=== PATIENT | female | born 1990 | race American Indian/Alaskan Native ===

== ENCOUNTER 2017-11-22 16:45 | Emergency (ER) | payer OTHER ==
[2017-11-22 16:45] VITALS: BMI 33.4
[2017-11-22 17:15] VITALS: RESP 18
--- NOTE | 2017-11-22 17:18 | ED PDOC ---
Arrival/HPI - General Chief Complaint: Chest Pain Time Seen by Provider: 11/22/17 16:46 Historian: Patient - History of Present Illness Narrative History of Present Illness (Text): you were treated in the ED today for no past medical conditions with mid- sternal chest pain with mild associated nausea which too as resolved but otherwise without any vomiting/headache/dizziness/difficulty breathing/abdomen pain/numbness/tingling/loss of limb function/pain with urination/no travel/ blood clots/cancer/hormonal use. 11/22/17 17:15 Time/Duration: Other (2 days) Symptom Onset: Gradual Symptom Course: Resolved, Intermittent Quality: Other (no pain) Activities at Onset: Rest Context: Sitting Past Medical History - Provider Review Nursing Documentation Reviewed: Yes - Travel History Have you recently traveled outside [place] w/in the past 3 mons?: No - Infectious Disease Hx of Infectious Diseases: None - Tetanus Immunization Tetanus Immunization: Unknown - Neurological Hx Migraine: Yes - Psychiatric Hx Psychophysiologic Disorder: No Hx Substance Use: No - Anesthesia Hx Anesthesia: No Family/Social History - Physician Review Nursing Documentation Reviewed: Yes Family/Social History: No Known Family HX Smoking Status: Never Smoked Hx Alcohol Use: Yes Frequency of alcohol use: Socially Hx Substance Use: No Allergies/Home Meds Allergies/Adverse Reactions: Allergies No Known Allergies Allergy (Verified 12/11/15 11:08) Home Medications: Home Meds Medication Instructions Recorded Confirmed No Known Home Med 12/11/15 11/22/17 Review of Systems - Review of Systems Constitutional: Normal Eyes: Normal ENT: Normal Respiratory: Normal Cardiovascular: Chest Pain Gastrointestinal: Nausea Genitourinary Female: Normal Musculoskeletal: Normal Skin: Normal Neurological: Normal Endocrine: Normal Hemo/Lymphatic: Normal Psychiatric: Normal Physical Exam Vital Signs Reviewed: Yes Vital Signs Temp Pulse Resp BP Pulse Ox 11/22/17 17:15 97.8 F 74 18 126/78 97 Appearance: Positive for: Well-Appearing, Non-Toxic, Comfortable Pain Distress: None Mental Status: Positive for: Alert and Oriented X 3 - Systems Exam Head: Present: Atraumatic, Normocephalic Pupils: Present: PERRL Extroacular Muscles: Present: EOMI Conjunctiva: Present: Normal Ears: Present: Normal Mouth: Present: Moist Mucous Membranes Pharnyx: Present: Normal Nose (External): Present: Atraumatic Nose (Internal): Present: Normal Inspection Neck: Present: Normal Range of Motion Respiratory/Chest: Present: Clear to Auscultation, Good Air Exchange Cardiovascular: Present: Regular Rate and Rhythm Abdomen: No: Tenderness, Distention, Normal Bowel Sounds, Peritoneal Signs, Rebound, Guarding, McBurney's Point Tender, Rovsing's Sign Present, Hernias, Feeding Tubes, Ostomy Tubes, Mass/Organomegaly, Scars, Other Back: Present: Normal Inspection Upper Extremity: Present: Normal Inspection Lower Extremity: Present: Normal Inspection Neurological: Present: GCS=15, CN II-XII Intact, Speech Normal, Motor Func Grossly Intact Skin: Present: Warm, Normal Color Psychiatric: Present: Alert, Oriented x 3, Normal Insight, Normal Concentration Medical Decision Making ED Course and Treatment: you were treated in the ED today for no past medical conditions with mid- sternal chest pain with mild associated nausea which too as resolved but otherwise without any vomiting/headache/dizziness/difficulty breathing/abdomen pain/numbness/tingling/loss of limb function/pain with urination/no travel/ blood clots/cancer/hormonal use. Uses just marijuana but denies any other drugs. You were otherwise breathing easily, smiling and laughing, good strength/ sensation, walking easily, clear lungs, no abdomen tenderness, no fever temp 97.8, stable heart rate 74, stable breathing rate 18, excellent oxygen level 97% room air, elevated blood pressure 126/78 which we recommend repeat in 2-3 days primary care office to determine further treatment, you have blood tests no infection count 10, stable blood level hemoglobin 12/platelets 337, stable chemistry, heart blood test negative less than 0.01, urine test negative, radiology chest xray no acute findings, ECG normal sinus rhythm, aspirin, protonix, observation done in the ED with improvement, counselled to monitor symptoms and thus discharged home. 1. Recommend pepcid as directed for stomach acid control. 3. Recommend follow-up primary care 2-3 days to review symptoms, referral to cardiology and gastroenterology to review your symptoms. 4. If any worsening pain, fever, chills, nausea, vomiting, difficulty breathing , numbness, loss of limb function, pain with urination or any medical condition then return to the ED. 11/22/17 19:00 11/22/17 19:53 Reassessment Condition: Re-examined, Improved - Lab Interpretations Lab Results: 11/22/17 17:45 11/22/17 17:45 Lab Results 11/22/17 18:45: Urine HCG, Qual Negative 11/22/17 17:45: Sodium 141, Potassium 4.1, Chloride 100, Carbon Dioxide 25, Anion Gap 20, BUN 9, Creatinine 0.7, Est GFR ( Amer) > 60, Est GFR (Non- Af Amer) > 60, Random Glucose 88, Calcium 10.1, Magnesium 2.1, Total Bilirubin 0.3, AST 33, ALT 30, Alkaline Phosphatase 99, Lactate Dehydrogenase 542, Total Creatine Kinase 94, Troponin I < 0.01, Total Protein 9.3 H, Albumin 5.1 H, Globulin 4.2, Albumin/Globulin Ratio 1.2 11/22/17 17:45: PT 10.7, INR 0.94, APTT 32.1 11/22/17 17:45: WBC 10.3 D, RBC 4.54, Hgb 12.8, Hct 39.0, MCV 85.9, MCH 28.2, MCHC 32.8, RDW 13.2, Plt Count 337, MPV 10.1, Gran % 57.0, Lymph % (Auto) 36.7 H , Otoe % (Auto) 4.5, Eos % (Auto) 1.4 L, Baso % (Auto) 0.4, Gran # 5.89, Lymph # (Auto) 3.8 H, Otoe # (Auto) 0.5, Eos # (Auto) 0.1, Baso # (Auto) 0.04 I have reviewed the lab results: Yes - RAD Interpretation Radiology Orders: 11/22/17 17:17 CHEST PORTABLE [RAD] Stat - EKG Interpretation Interpreted by ED Physician: Yes (NSR, flipped avr, v1, ) Type: 12 lead EKG - Medication Orders Current Medication Orders: Discontinued Medications Aspirin (Aspirin) 325 mg PO STAT STA Stop: 11/22/17 17:18 Last Admin: 11/22/17 17:59 Dose: 325 mg Pantoprazole Sodium (Protonix Ec Tab) 40 mg PO STAT STA Stop: 11/22/17 17:21 Last Admin: 11/22/17 17:59 Dose: 40 mg Disposition/Present on Arrival - Present on Arrival Any Indicators Present on Arrival: No History of DVT/PE: No History of Uncontrolled Diabetes: No Urinary Catheter: No History of Decub. Ulcer: No History Surgical Site Infection Following: None - Disposition Have Diagnosis and Disposition been Completed?: Yes Diagnosis: Chest pain Disposition: HOME/ ROUTINE Disposition Time: 19:52 Patient Plan: Discharge Condition: IMPROVED Discharge Instructions (ExitCare): Chest Pain (ED), Chest Pain (DC) Additional Instructions: you were treated in the ED today for no past medical conditions with mid- sternal chest pain with mild associated nausea which too as resolved but otherwise without any vomiting/headache/dizziness/difficulty breathing/abdomen pain/numbness/tingling/loss of limb function/pain with urination/no travel/ blood clots/cancer/hormonal use. Uses just marijuana but denies any other drugs. You were otherwise breathing easily, smiling and laughing, good strength/ sensation, walking easily, clear lungs, no abdomen tenderness, no fever temp 97.8, stable heart rate 74, stable breathing rate 18, excellent oxygen level 97% room air, elevated blood pressure 126/78 which we recommend repeat in 2-3 days primary care office to determine further treatment, you have blood tests no infection count 10, stable blood level hemoglobin 12/platelets 337, stable chemistry, heart blood test negative less than 0.01, urine test negative, radiology chest xray no acute findings, ECG normal sinus rhythm, aspirin, protonix, observation done in the ED with improvement, counselled to monitor symptoms and thus discharged home. 1. Recommend pepcid as directed for stomach acid control. 3. Recommend follow-up primary care 2-3 days to review symptoms, referral to cardiology and gastroenterology to review your symptoms. 4. If any worsening pain, fever, chills, nausea, vomiting, difficulty breathing , numbness, loss of limb function, pain with urination or any medical condition then return to the ED. Referrals: PCP,NO [Primary Care Provider] - Follow up with primary Forms: [employer] ([place]e)
[2017-11-22] MEDS ORDERED: Pantoprazole 40 mg EC Tab PO STA (17:20)
[2017-11-22 18:04] LABS: BASO # 0.04 K/mm3 (0.0-2.0); BASO % 0.4 % (0.0-3.0); EOS # 0.1 (0.0-0.7); EOS % 1.4 % (1.5-5.0); GRAN # 5.89 (1.4-6.5); HEMOGLOBIN 12.8 g/dL (12.0-16.0); LYMPH # 3.8 (1.2-3.4); LYMPH % 36.7 % (22.0-35.0); MEAN CELL VOLUME 85.9 fl (80.0-105.0); MEAN CORPUSCULAR HEMOGLOBIN 28.2 pg (25.0-35.0); MEAN CORPUSCULAR HGB CONC 32.8 g/dl (31.0-37.0); MEAN PLATELET VOLUME 10.1 fl (7.0-11.0); MONO # 0.5 (0.1-0.6); MONO % 4.5 % (1.0-6.0); RBC 4.54 10^6/uL (3.5-6.1); RED CELL DISTRIBUTION WIDTH 13.2 % (11.5-14.5); WHITE BLOOD COUNT 10.3 10^3/ul (4.5-11.0)
[2017-11-22 18:14] LABS: ALB/GLOB RATIO 1.2 (1.1-1.8); ALBUMIN 5.1 g/dL (3.0-4.8); ALT/SGPT 30 U/L (7-56); AST/SGOT 33 U/L (14-36); BLOOD UREA NITROGEN 9 mg/dL (7-21); CALCIUM 10.1 mg/dL (8.4-10.5); GFR AFRICAN-AMERICAN > 60; GFR NON-AFRICAN AMERICAN > 60
[2017-11-22 18:21] LABS: INR 0.94 (0.93-1.08); PARTIAL THROMBOPLASTIN TIME 32.1 Seconds (25.1-36.5); PROTHROMBIN TIME 10.7 SECONDS (9.4-12.5)
[2017-11-22 18:24] LABS: TROPONIN I < 0.01 ng/mL
[2017-11-22 20:28] VITALS: BP 120/70; PULSE 83; O2SAT 99
[2017-11-22 20:40] VITALS: TEMP 98.1
--- NOTE | 2017-11-23 08:19 | RAD ---
HISTORY: Chest pain COMPARISON: No prior. FINDINGS: LUNGS: No active pulmonary disease. PLEURA: No significant pleural effusion identified, no pneumothorax apparent. CARDIOVASCULAR: Normal. OSSEOUS STRUCTURES: No significant abnormalities. VISUALIZED UPPER ABDOMEN: Normal. OTHER FINDINGS: None. IMPRESSION: No active disease.
--- NOTE | 2017-11-23 08:54 | CARD ---
APPROVED REPORT EKG Measurement Heart [id number] <Conclusion> Normal sinus rhythm.
== END 2017-11-22 20:20 | disposition home or self-care (01) ==
LOC: ED 16:45
DX: R07.9 Chest pain, unspecified (principal)

== ENCOUNTER 2018-05-10 19:59 | Emergency (ER) | payer OTHER ==
[2018-05-10 19:59] VITALS: BMI 33.4
--- NOTE | 2018-05-10 21:41 | ED PDOC ---
Arrival/HPI - General Time Seen by Provider: 05/10/18 21:04 Historian: Patient - History of Present Illness Narrative History of Present Illness (Text): 05/10/18 21:39 27 y/o female, pmh including gerd, nkda, c/o lower abdominal pain with nausea/vomiting/diarrhea x 4-5 days. Aching pain, on and off, associated with nausea/vomiting, couple episodes of watery diarrhea, no fever or chills, no night sweat, no dizziness, no change in vision, no palpitation no other medical or psychological complaints. Past Medical History - Provider Review Nursing Documentation Reviewed: Yes - Infectious Disease Hx of Infectious Diseases: None - Tetanus Immunization Tetanus Immunization: Unknown - Neurological Hx Migraine: Yes - Psychiatric Hx Psychophysiologic Disorder: No Hx Substance Use: No - Anesthesia Hx Anesthesia: No Family/Social History - Physician Review Nursing Documentation Reviewed: Yes Family/Social History: Unknown Family HX Smoking Status: Never Smoked Hx Alcohol Use: Yes Hx Substance Use: No Allergies/Home Meds Allergies/Adverse Reactions: Allergies No Known Allergies Allergy (Verified 05/10/18 21:42) Review of Systems - Review of Systems Constitutional: absent: Fatigue, Fevers Eyes: absent: Vision Changes ENT: absent: Hearing Changes Respiratory: absent: SOB, Cough Cardiovascular: absent: Chest Pain Gastrointestinal: Abdominal Pain, Diarrhea, Nausea, Vomiting Musculoskeletal: absent: Arthralgias, Back Pain Skin: absent: Rash, Pruritis Neurological: absent: Headache, Dizziness Psychiatric: absent: Anxiety, Depression, Suicidal Ideation Physical Exam - Systems Exam Head: Present: Atraumatic, Normocephalic Pupils: Present: PERRL Extroacular Muscles: Present: EOMI Conjunctiva: Present: Normal Mouth: Present: Moist Mucous Membranes Neck: Present: Normal Range of Motion Respiratory/Chest: Present: Clear to Auscultation, Good Air Exchange. No: Respiratory Distress, Accessory Muscle Use Cardiovascular: Present: Regular Rate and Rhythm, Normal S1, S2. No: Murmurs Abdomen: Present: Tenderness (periumbilical region). No: Distention, Peritoneal Signs, Rebound, Guarding Back: Present: Normal Inspection Upper Extremity: Present: Normal Inspection. No: Cyanosis, Edema Lower Extremity: Present: Normal Inspection. No: Edema Neurological: Present: GCS=15, CN II-XII Intact, Speech Normal, Motor Func Grossly Intact, Gait Normal, Memory Normal Skin: Present: Warm, Dry, Normal Color. No: Rashes Psychiatric: Present: Alert, Oriented x 3, Normal Insight, Normal Concentration Medical Decision Making ED Course and Treatment: 05/10/18 21:40 -Labs/ua -CT abdomen and pelvis -IVF/pepcid/reglan -Observe and reassess 05/11/18 00:16 -urine hcg is negative -CT abdomen and pelvis show Enteritis. Infectious and inflammatory etiologies are considered. There is a small complex low attenuation lesion in the left adnexa measuring 2.0 x 2.2 cm. -Labs show no acute findings -UA show +UTI -All labs and radiology results discussed with the patient, she feels much better. -Discharge home with macrobid, motrin, pepcid, zofran, BRAT diet, nondairy diet, follow up with your own pmd and obgyn/GI within 2 days, return to the ER for any new or worsening signs or symptoms. - RAD Interpretation Radiology Orders: FINDINGS: LUNG BASES: The lung bases appear clear. No pleural effusions are seen. LIVER: Unremarkable. GALLBLADDER AND BILE DUCTS: The gallbladder appears within normal limits. No radioopaque gallstones are seen. No biliary ductal dilatation is evident. PANCREAS: Unremarkable. SPLEEN: Unremarkable. ADRENAL GLANDS: Unremarkable. KIDNEYS, URETERS, AND BLADDER: There is a small simple cyst in the right kidney. STOMACH AND BOWEL: Thick walled fluid filled duodenum and loops of jejunum as well as ileum compatible with enteritis. Infectious and inflammatory etiologies are considered. APPENDIX: No evidence of acute appendicitis on CT examination. PERITONEUM: No free fluid. No free air. LYMPH NODES: No lymphadenopathy is evident. REPRODUCTIVE: MISCELLANEOUS: There is a small complex low attenuation lesion in the left adnexa measuring 2.0 x 2.2 cm. Otherwise negative. VASCULATURE: No evidence of abdominal aortic aneurysm. BONES: No aggressive appearing osseous lesion. No acute osseous pathology evident. IMPRESSION: 1. Enteritis. Infectious and inflammatory etiologies are considered. 2. There is a small complex low attenuation lesion in the left adnexa measuring 2.0 x 2.2 cm. Electronically signed on May 10, 2018 11:50:32 PM EDT by: Daniel Jones M.D., CLIF Certified By [employer] Fellowship Trained MRI and CT Specialist Supervisor Maintenance And Custodians: Radiologist - PA / [employer]CE[employer] LIFEGUARD SPECIALIST / Resident Statement / has reviewed & agrees with the documentation as recorded. Disposition/Present on Arrival - Present on Arrival Any Indicators Present on Arrival: No History of DVT/PE: No History of Uncontrolled Diabetes: No Urinary Catheter: No History of Decub. Ulcer: No History Surgical Site Infection Following: None - Disposition Have Diagnosis and Disposition been Completed?: Yes Diagnosis: UTI (urinary tract infection), Ovarian cyst, Gastroenteritis Disposition: HOME/ ROUTINE Disposition Time: 00:18 Patient Plan: Discharge Patient Problems: Current Active Problems Problem Status Onset UTI (urinary tract infection) Acute Abdominal pain Acute Condition: IMPROVED Additional Instructions: -Discharge home with macrobid, motrin, pepcid, zofran, BRAT diet, nondairy diet, follow up with your own pmd and obgyn/GI within 2 days, return to the ER for any new or worsening signs or symptoms. Prescriptions: Famotidine [Pepcid] 20 mg PO BID #14 tab Ibuprofen [Motrin] 600 mg PO QID PRN #30 tab PRN Reason: Other Nitrofurantoin Macrocrystals [Macrobid] 100 mg PO BID #14 cap Ondansetron [Zofran] 4 mg PO Q8H PRN #12 tab PRN Reason: Other Referrals: Sandro Oreilly DO [Staff Provider] - Follow up with primary Nghia Tejeda MD [Staff Provider] - Follow up with primary [facility] [place] [Outside] - Follow up with primary Forms: WORK NOTE
[2018-05-10 21:42] VITALS: RESP 20; TEMP 98.1; O2SAT 97
[2018-05-10] MEDS ORDERED: Sodium Chloride 0.9% 1,000 ML IV STA (21:43)
[2018-05-10 22:07] LABS: BASO # 0.06 K/mm3 (0.0-2.0); BASO % 0.7 % (0.0-3.0); EOS # 0.2 (0.0-0.7); EOS % 1.9 % (1.5-5.0); GRAN # 5.13 (1.4-6.5); GRAN % 56.8 % (50.0-68.0); LYMPH # 3.2 (1.2-3.4); LYMPH % 35.3 % (22.0-35.0); MEAN CELL VOLUME 85.6 fl (80.0-105.0); MEAN CORPUSCULAR HEMOGLOBIN 28.8 pg (25.0-35.0); MEAN CORPUSCULAR HGB CONC 33.6 g/dl (31.0-37.0); MEAN PLATELET VOLUME 9.9 fl (7.0-11.0); MONO # 0.5 (0.1-0.6); MONO % 5.3 % (1.0-6.0); RBC 4.52 10^6/uL (3.5-6.1); RED CELL DISTRIBUTION WIDTH 12.8 % (11.5-14.5)
[2018-05-10 22:08] LABS: PH,URINE 6.5 (4.7-8.0); URINE BILIRUBIN NEGATIVE (NEGATIVE); URINE BLOOD TRACE-INTACT (NEGATIVE); URINE GLUCOSE (UA) NEGATIVE (NEGATIVE); URINE LEUKOCYTE ESTERASE TRACE Leu/uL (NEGATIVE); URINE PROTEIN NEGATIVE mg/dL (<30 mg/dL); URINE UROBILINOGEN 0.2 E.U./dL (<1 E.U./dL)
[2018-05-10 22:10] LABS: URINE APPEARANCE CLEAR (CLEAR); URINE COLOR YELLOW (YELLOW)
[2018-05-10 22:15] LABS: ALB/GLOB RATIO 1.1 (1.1-1.8); ALBUMIN 4.5 g/dL (3.0-4.8); ALT/SGPT 22 U/L (7-56); AST/SGOT 24 U/L (14-36); BLOOD UREA NITROGEN 12 mg/dL (7-21); CALCIUM 9.2 mg/dL (8.4-10.5); GFR NON-AFRICAN AMERICAN > 60; LIPASE 60 U/L (23-300)
[2018-05-10 22:31] LABS: URINE RBC 0 - 2 /hpf (0-2)
[2018-05-10 22:33] LABS: URINE AMORPHOUS SEDIMENT FEW; URINE BACTERIA OCC (NEG)
[2018-05-11 00:30] VITALS: BP 124/63; PULSE 79
--- NOTE | 2018-05-11 08:42 | CT ---
Date of service: 05/10/2018 PROCEDURE: CT Abdomen and Pelvis with contrast HISTORY: lower abdominal pain/n/v/diarrhea COMPARISON: None available. TECHNIQUE: Contrast dose: 150 mL Omnipaque 350 Radiation dose: Total exam DLP = 1214.78 mGy-cm. This CT exam was performed using one or more of the following dose reduction techniques: Automated exposure control, adjustment of the mA and/or kV according to patient size, and/or use of iterative reconstruction technique. FINDINGS: LOWER THORAX: No visible consolidation, pleural effusion, or pneumothorax. LIVER: Unremarkable. GALLBLADDER AND BILE DUCTS: Unremarkable. PANCREAS: Unremarkable. SPLEEN: Unremarkable. ADRENALS: Unremarkable. KIDNEYS AND URETERS: The kidneys enhance symmetrically. No hydronephrosis or obstructing calculus identified. 12 mm right renal cyst. VASCULATURE: No aortic aneurysm. BOWEL: Stomach is nondistended. Lack of oral contrast limits evaluation for bowel pathology. Bowel loops appear within normal limits of caliber without evidence of obstruction. Small bowel wall thickening (duodenum, jejunum, ileum) consistent with enteritis. APPENDIX: The appendix appears within normal limits of caliber. No secondary signs of acute appendicitis. PERITONEUM: No significant free fluid. No definite free air. LYMPH NODES: Prominent sub cm mesenteric lymph nodes, nonspecific. BLADDER: Unremarkable. REPRODUCTIVE: The uterus is present. 2.2 cm probable left complex cyst. BONES: No acute osseous abnormality is detected. OTHER FINDINGS: None. IMPRESSION: Suspect 2.2 cm complex left ovarian cyst. Recommend further evaluation with pelvic ultrasound. Mild nonspecific wall thickening involving several bowel loops may be seen in the setting of enteritis. Correlate clinically. Preliminary impression was provided by [employer].
== END 2018-05-11 00:32 | disposition home or self-care (01) ==
LOC: ED 19:59
DX: K52.9 Noninfective gastroenteritis and colitis, unspecified (principal); N39.0 Urinary tract infection, site not specified; N83.209 Unspecified ovarian cyst, unspecified side
CPT/HCPCS: 74177; 80053; 81001; 83690; 83735; 85025; 87086; 96374; 96375; 99283; J2765; J7030; Q9967

== ENCOUNTER 2018-07-30 22:34 | Emergency (ER) | payer OTHER ==
[2018-07-30 22:34] VITALS: BMI 33.4
[2018-07-30] MEDS ORDERED: Penicillin G Benzathine 1.2 Mill Unit/2 ml Syr IM STA (23:56)
--- NOTE | 2018-07-31 00:17 | ED PDOC ---
Arrival/HPI <Brett Cuadra - Last Filed: 07/31/18 01:01> - General Historian: Patient - History of Present Illness Narrative History of Present Illness (Text): 07/31/18 00:20 27-year-old female complaining of sore throat for the past few days with a dry cough. Reports no rash, headache, nausea, vomiting, diarrhea difficulty breathing, chest pain, abdominal pain. Has no additional complaints. <Berna Betancourt PA-C - Last Filed: 07/31/18 01:39> - General Chief Complaint: ENT Problem Time Seen by Provider: 07/30/18 22:49 Past Medical History - Infectious Disease Hx of Infectious Diseases: None - Tetanus Immunization Tetanus Immunization: Unknown - Neurological Hx Migraine: Yes - Psychiatric Hx Psychophysiologic Disorder: No Hx Substance Use: No - Anesthesia Hx Anesthesia: No <Berna Betancourt PA-C - Last Filed: 07/31/18 01:39> Family/Social History Family/Social History: No Known Family HX Smoking Status: Never Smoked Hx Alcohol Use: Yes Hx Substance Use: No <Berna Betancourt PA-C - Last Filed: 07/31/18 01:39> Allergies/Home Meds <Brett Cuadra - Last Filed: 07/31/18 01:01> <Berna Betancourt PA-C - Last Filed: 07/31/18 01:39> Allergies/Adverse Reactions: Allergies No Known Allergies Allergy (Verified 05/10/18 21:42) Review of Systems - Review of Systems Constitutional: Fevers. absent: Fatigue ENT: Sore Throat. absent: Rhinorrhea, Sinus Congestion Respiratory: Cough. absent: SOB Cardiovascular: absent: Chest Pain, Palpitations Gastrointestinal: absent: Abdominal Pain, Nausea, Vomiting Skin: absent: Rash, Pruritis, Skin Lesions Neurological: absent: Headache, Dizziness <Berna Betancourt PA-C - Last Filed: 07/31/18 01:39> Physical Exam Vital Signs Temp Pulse Resp BP Pulse Ox 07/30/18 23:50 100.8 F H 113 H 18 134/87 98 <Brett Cuadra - Last Filed: 07/31/18 01:01> Vital Signs Temp Pulse Resp BP Pulse Ox 07/30/18 23:50 100.8 F H 113 H 18 134/87 98 Temperature: Febrile Blood Pressure: Normal Pulse: Tachycardic Respiratory Rate: Normal Appearance: Positive for: Well-Appearing, Non-Toxic, Comfortable Pain Distress: Mild Mental Status: Positive for: Alert and Oriented X 3 - Systems Exam Head: Present: Atraumatic, Normocephalic Pupils: Present: PERRL Extroacular Muscles: Present: EOMI Conjunctiva: Present: Normal Ears: Present: Normal, NORMAL TM Mouth: Present: Moist Mucous Membranes Pharnyx: Present: ERYTHEMA, EXUDATE, TONSILS ENLARGED. No: Uvular Deviation, Muffled/Hoarse Voice, Strider, Soft Palate/Uvular Edema Neck: Present: Normal Range of Motion. No: Meningeal Signs, Lymphadenopathy Respiratory/Chest: Present: Clear to Auscultation, Good Air Exchange. No: Respiratory Distress, Accessory Muscle Use Cardiovascular: Present: Regular Rate and Rhythm, Normal S1, S2. No: Murmurs Abdomen: No: Tenderness, Distention, Peritoneal Signs Back: Present: Normal Inspection Upper Extremity: Present: Normal Inspection. No: Cyanosis, Edema Lower Extremity: Present: Normal Inspection. No: Edema Neurological: Present: GCS=15, CN II-XII Intact, Speech Normal, Motor Func Grossly Intact, Normal Sensory Function Skin: Present: Warm, Dry, Normal Color. No: Rashes Psychiatric: Present: Alert, Oriented x 3, Normal Insight, Normal Concentration <Berna Betancourt PA-C - Last Filed: 07/31/18 01:39> Medical Decision Making - Medication Orders Current Medication Orders: Discontinued Medications Dexamethasone (Decadron Inj) 10 mg IM STAT STA Stop: 07/30/18 23:57 Last Admin: 07/31/18 00:39 Dose: 10 mg IM Administration Charges Document 07/31/18 00:39 CNR (Rec: 07/31/18 00:39 CNR [id number]) Injection Site MAR Injection Site Right Deltoid Charges for Administration # of IM Administrations 1 Ibuprofen (Motrin Tab) 800 mg PO STAT STA Stop: 07/30/18 23:57 Last Admin: 07/31/18 00:39 Dose: 800 mg Penicillin G Benzathine (Bicillin L-A Inj) 1,200,000 units IM STAT STA; Protocol Stop: 07/30/18 23:57 Last Admin: 07/31/18 00:35 Dose: 1,200,000 units IM Administration Charges Document 07/31/18 00:35 CNR (Rec: 07/31/18 00:39 CNR [id number]) Injection Site MAR Injection Site Left Vastus Lateralis Charges for Administration # of IM Administrations 1 <Brett Cuadra - Last Filed: 07/31/18 01:01> ED Course and Treatment: 07/31/18 00:17 Patient medicated with pcn IM 1.2 million units IM, decadron IM 10 mg, and motrin 800 mg PO. On reevaluation, patient remains awake alert and oriented 3 in no acute distress, speaking in full sentences, no drooling, tolerating po fluids. Advised to follow up with primary care physician or referral provided in 1-2 days without fail. Advised to take medication as prescribed. Return to the emergency room at any time for any new or worsening symptoms. Patient states she fully agrees with and understands discharge instructions. St at[place] that she agrees with the plan and disposition. Verbalized and repeated discharge instructions and plan. I have given the patient opportunity to ask any additional questions. - Medication Orders Current Medication Orders: Discontinued Medications Dexamethasone (Decadron Inj) 10 mg IM STAT STA Stop: 07/30/18 23:57 Ibuprofen (Motrin Tab) 800 mg PO STAT STA Stop: 07/30/18 23:57 Penicillin G Benzathine (Bicillin L-A Inj) 1,200,000 units IM STAT STA; Protocol Stop: 07/30/18 23:57 <Berna Betancourt PA-C - Last Filed: 07/31/18 01:39> - PA / ELECTRICAL EQUIPMENT TESTER / Resident Statement GISELLE has reviewed & agrees with the documentation as recorded. GISELLE has examined the patient and agrees with the treatment plan. <Brett Cuadra - Last Filed: 07/31/18 01:01> - PA / ELECTRICAL EQUIPMENT TESTER / Resident Statement GISELLE has reviewed & agrees with the documentation as recorded. <Berna Betancourt PA-C - Last Filed: 07/31/18 01:39> Disposition/Present on Arrival <Brett Cuadra - Last Filed: 07/31/18 01:01> - Present on Arrival Any Indicators Present on Arrival: No History of DVT/PE: No History of Uncontrolled Diabetes: No Urinary Catheter: No History of Decub. Ulcer: No History Surgical Site Infection Following: None - Disposition Have Diagnosis and Disposition been Completed?: Yes Disposition Time: 00:00 Patient Plan: Discharge <Serafin COHENBerna - Last Filed: 07/31/18 01:39> - Disposition Diagnosis: Acute pharyngitis Disposition: HOME/ ROUTINE Patient Problems: Current Active Problems Problem Status Onset Acute pharyngitis Acute Condition: STABLE Discharge Instructions (ExitCare): Sore Throat, Adult (DC) Additional Instructions: Thank you for letting us take care of you today. You were treated for acute pharyngitis. The emergency medical care you received today was directed at your acute symptoms. If you were prescribed any medication, please fill it and take as directed. It may take several days for your symptoms to resolve. Return to the Emergency Department if your symptoms worsen, do not improve, or if you have any other problems. Please contact your doctor in 2 days for re-evaluation and follow up / or call one of the physicians/clinics you have been referred to that are listed on the Patient Visit Information form that is included in your discharge packet. Bring any paperwork you were given at discharge with you along with any medications you are taking to your follow up visit. Our treatment cannot replace ongoing medical care by a primary care provider (PCP) outside of the emergency department. Thank you for allowing the [facility] team to be part of your care today. Prescriptions: Ibuprofen [Motrin Tab] 600 mg PO QID PRN #20 tab PRN Reason: Fever >100.4 F Mag&Al/Simet/Diphen/Lido [First Magic Mouthwash] 5 ml MM TID PRN #1 kit PRN Reason: Sore Throat Referrals: FAMILY PROVIDER,NO [Primary Care Provider] - Follow up with primary Daphne Montesinos MD [Staff Provider] - Follow up with primary Forms: [employer] ([place]), WORK NOTE
[2018-07-31 03:26] VITALS: BP 132/71; PULSE 98; RESP 16; O2SAT 100
[2018-07-31 03:27] VITALS: TEMP 100
== END 2018-07-31 00:45 | disposition home or self-care (01) ==
LOC: ED 22:34
DX: J02.9 Acute pharyngitis, unspecified (principal)
CPT/HCPCS: 96372; 99283; J0561; J1100